=== PATIENT | female | born 1985 | race Caucasian/White ===

== ENCOUNTER 2018-12-16 17:38 | Emergency (ER) | payer OTHER ==
[2018-12-16] MEDS ORDERED: Ibuprofen TAB* 600 MG PO ONE (18:42)
[2018-12-16] MEDS ORDERED: Cyclobenzaprine TAB* 10 MG PO ONE (21:15)
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
[2018-12-16 21:31] VITALS: BP 114/74
== END 2018-12-16 21:27 | disposition home or self-care (01) ==
LOC: MERGE 17:38 → ED 17:38
DX: M54.2 Cervicalgia (principal); R51 Headache; V49.50XA Passenger injured in collision with unspecified motor vehicles in traffic accident, initial encounter; N20.0 Calculus of kidney
CPT/HCPCS: 72125; 72128; 99282; A9270-GY